=== PATIENT | male | born 1960 | race Caucasian/White ===

== ENCOUNTER 2017-06-29 09:56 | Day surgery (SDC) | payer OTHER ==
[~2017-06-29 09:56] MED LIST: RINGER'S SOLUTION,LACTATED 1,000 ML IV PRN; ceFAZolin SODIUM 1 GM VIAL IV PRN
[2017-06-29] MEDS ORDERED: BUPIVACAINE HCL/EPINEPHRINE 50 ML VIAL IJ ONE (12:20)
[2017-06-29] MEDS ORDERED: RINGER'S SOLUTION,LACTATED 1,000 ML IV ONE (13:47)
--- NOTE | 2017-06-29 14:16 | POSTOP NO ---
Date of Surgery: 06/29/17 Anesthesia: General Patient Tolerated the Procedure: Well Post Operative Diagnosis/Procedures: Post Operative Diagnosis: Retained painful implants left tibia Procedure Performed: Removal of deep implants left tibia with intraoperative interpretation of x-rays Spot Welder Line: Edmundo Stark PA-C Tourniquet Time (minutes): 89 at 250 mmHg Estimated Blood Loss: Minimal Fluids Given: Drains: Specimens: Implants the patient Implants: None Surgical Complications: Findings: See above Condition: Disposition:
--- NOTE | 2017-06-29 14:17 | OR ---
Operative Report - Dictated Report Narrative: Date: 06/29/2017 Surgeon: James Cruz M.D. Tensile Tester: Edmundo Stark PA-C Preoperative diagnosis: Painful retained implants left tibia Postoperative diagnosis: Painful retained implants left tibia Operation: 1 - Removal of deep implants left tibia 2 - Intraoperative interpretation of x-rays Retained implants: None Anesthesia: General plus local Tourniquet time: 89 Minutes at 250 mmHg Estimated blood loss: Minimal Drains: None Specimen: Implants for returned the patient Complications: None Indications: Mr. Danielson is a 57-year-old gentleman who previously underwent intramedullary fixation of left tibia fracture and subsequently developed pain related to the implants. They've gone on to heal the fracture however had notable symptoms related to the implants and wished to have these removed.. They were seen in the clinic and discuss the options for treatment. He wished to proceed with surgical removal of deep implants. The risks and benefits alternatives were discussed. Risks of , blood clots, bleeding, infection, nerve/tendon/blood vessel injury, persistent pain, wound complications, and need for additional procedures were discussed. Consent was obtained in the clinic. Procedure: After marking the correct extremity in the preoperative holding area, the patient was taken to the operating room. A timeout was performed. IV antibiotics consisting of Ancef were administered. Adequate anesthesia was placed. The extremity was then prepped and draped in standard sterile fashion. Utilizing the prior incision, sharp dissection was carried through the skin after exsanguinating extremity and inflating tourniquet. Careful dissection was carried down to the implants. The implants were then removed without complication. There did not appear to be any complications related to the fracture nor any signs of infection. Once all the implants were removed, the wound was thoroughly irrigated. A prominent bone was removed and the soft tissues were closed in a layered fashion with 3-0 Vicryl and the skin was closed with anca. Final images were obtained with mini C-arm. Sterile dressings of Xeroform, 4 x 4, soft roll, Fortunato wrap. 0.25% Marcaine with epinephrine was infused into the skin edges prior to placing dressings. All sponge, needle, sharp, and instrument counts were correct prior to closing the wound. The patient was awoken and transferred to the postanesthesia care in stable condition.
[2017-06-29] MEDS ORDERED: HYDROmorphone HCL 2 MG/ML VIAL IV PRN ×2 (15:50→16:00)
[2017-06-29] MEDS ORDERED: oxyCODONE HCL/ACETAMINOPHEN 1 TAB TABLET PO PRN (15:50)
[2017-06-29 16:43] VITALS: BP 139/85
== END 2017-06-29 09:57 | disposition home or self-care (01) ==
LOC: AMB 09:56
PROVIDERS: ATTEND Orthopaedic Surgery
PROC: 0QPH04Z Removal of Internal Fixation Device from Left Tibia, Open Approach (ICD-10-PCS; principal; 2017-06-29 13:00)
DX: T84.84XA Pain due to internal orthopedic prosthetic devices, implants and grafts, initial encounter (principal); F31.9 Bipolar disorder, unspecified; F17.200 Nicotine dependence, unspecified, uncomplicated; Z68.25 Body mass index [BMI] 25.0-25.9, adult